=== PATIENT | male | born 1965 | race American Indian/Alaskan Native ===

== ENCOUNTER 2018-05-19 19:11 | Emergency (ER) | payer BC ==
[2018-05-19 19:54] VITALS: BP 145/93
[2018-05-20] MEDS ORDERED: BENADRYL PO ONE (00:48)
[2018-05-20] MEDS ORDERED: MOTRIN PO ONE (00:48)
--- NOTE | 2018-05-20 00:56 | Emergency Department Report ---
[facility] Chief Complaint: Eye Problems Stated Complaint: FOREIGN OBJECT BILATERAL EYES Time Seen by Provider: 05/20/18 00:48 Duration: 3 Days Side: Bilateral Severity: moderate Symptoms: Yes Eye Itching, Yes Eye Redness, Yes Eye Pain, Yes Purulent Drainage (am yellow ), No Mucous Drainage, No Blurred Vision (resolved after irrigation ) , No Preceding URI, No H/O Allergic Rhinitis, No Contact Lens Use, No Trauma, No Fever, No Headache ED Review of Systems ROS: Stated complaint: FOREIGN OBJECT BILATERAL EYES Other details as noted in HPI Constitutional: denies: chills, fever Eyes: eye pain, eye discharge ENT: denies: ear pain, throat pain Respiratory: denies: cough, shortness of breath, wheezing Cardiovascular: denies: chest pain, palpitations Endocrine: no symptoms reported Gastrointestinal: denies: abdominal pain, nausea, diarrhea Genitourinary: denies: urgency, dysuria Musculoskeletal: denies: back pain, joint swelling, arthralgia Skin: denies: rash, lesions Neurological: denies: headache, weakness, paresthesias Psychiatric: denies: anxiety, depression Hematological/Lymphatic: denies: easy bleeding, easy bruising ED Past Medical Hx - Past Medical History Hx Hypertension: Yes - Surgical History Past Surgical History?: No - Social History Smoking Status: Never Smoker Substance Use Type: None - Medications Home Medications: Home Medications Medication Instructions Recorded Confirmed Last Taken Type Amlodipine Besylate [Norvasc] 10 mg PO QDAY 09/22/15 09/22/15 09/22/15 History Losartan/Hydrochlorothiazide 1 tab PO QDAY 09/22/15 09/22/15 09/22/15 History [Hyzaar 100-25 TAB] Ibuprofen 800 mg PO TID PRN #30 tablet 05/20/18 Unknown Rx Ketotifen Fumarate [Zaditor] 1 drop OU BID 7 Days #5 ml 05/20/18 Unknown Rx Polymyxin B Sulf/Trimethoprim 1 drop OU Q4H 10 Days #10 ml 05/20/18 Unknown Rx [Polytrim Eye Drops] [facility] Exam - Exam General: Vital signs noted. No distress. Alert and acting appropriately. Eye Exam: Both Injection, Both EOMI, Neither Chemosis, Neither Abnormal Pupil, Neither Eye Foreign Body, Neither Lid Foreign Body, Neither Mucous Discharge, Neither Purulent Discharge, Neither Photophobia HEENT: No Nasal Congestion, No Pharyngeal Erythema Remainder of HEENT: Normal Lungs: Yes Clear Lung Sounds, Yes Good Air Exchange, No Wheezes, No Stridor, No Cough, No Nasal Flaring, No Retractions, No Use of Accessory Muscles ED Course Vital Signs 05/19/18 19:51 Temperature 99.1 F Pulse Rate 75 Respiratory 16 Rate Blood Pressure 145/93 O2 Sat by Pulse 96 Oximetry ED Medical Decision Making - Medical Decision Making Patient states exposures to hydraulic fluid to bilateral eyes 3 days agoas irrigated and washed station at work now with increasing burning redness bilateral eyes states a.m. mucous discharge initially blurred vision resolved after irrigation of eyes no photophobia fever no chills no foreign bodies environments were irrigated with normal saline fluid acuity is 20/30 bilaterally plan Polytrim Zaditor follow up with ophthalmology in 2 days pt verbalzieda greement and understanding of same, pt for discharge to home in stable condition at this time. Critical care attestation.: If time is entered above; I have spent that time in minutes in the direct care of this critically ill patient, excluding procedure time. ED Disposition Clinical Impression: Conjunctivitis Qualifiers: Conjunctivitis type: acute Acute conjunctivitis type: bacterial Laterality: bilateral Qualified Code(s): H10.33 - Unspecified acute conjunctivitis, bilateral Disposition: DC-01 TO HOME OR SELFCARE Is pt being admited?: No Does the pt Need Aspirin: No Condition: Good Instructions: Conjunctivitis (ED) Prescriptions: Ibuprofen 800 mg PO TID PRN #30 tablet PRN Reason: pain Ketotifen Fumarate [Zaditor] 1 drop OU BID 7 Days #5 ml Polymyxin B Sulf/Trimethoprim [Polytrim Eye Drops] 1 drop OU Q4H 10 Days #10 ml Referrals: LARRY PICHARDO MD [Staff Physician] - 3-5 Days Forms: Work/School Release Form(ED) Time of Disposition: 00:59
== END 2018-05-20 01:11 | disposition home or self-care (01) ==
LOC: ED 19:11
DX: H10.33 Unspecified acute conjunctivitis, bilateral (principal); I10 Essential (primary) hypertension
CPT/HCPCS: 99282

== ENCOUNTER 2018-12-10 16:46 | Emergency (ER) | payer BC ==
[2018-12-10 17:33] VITALS: BP 135/97
--- NOTE | 2018-12-10 17:34 | Emergency Department Report ---
Chief Complaint: Dental/Oral Stated Complaint: TOOTHACHE Time Seen by Provider: 12/10/18 17:30 - HPI History of Present Illness: pt states that he has right upper dental pain two days ago states he saw the dentist today and was dx with dental abscess he claims the dentist advised to receive abx from the ER, states that the dentist is going to pull the tooth no fever no N/V PMHx HTN no medications allergies MSE screening note: Focused history and physical exam performed. ED Disposition for MSE Condition: Stable
--- NOTE | 2018-12-10 20:42 | Emergency Department Report ---
ED ENT HPI - General Chief complaint: Dental/Oral Stated complaint: TOOTHACHE Time Seen by Provider: 12/10/18 17:30 Source: patient Mode of arrival: Ambulatory Limitations: No Limitations - History of Present Illness Initial comments: pt is a 53 yo male who presents to the ED for right upper dental pain that began two days ago. Pt reports he saw the dentist today and was dx with dental abscess. He claims the dentist advised to receive abx from the ER, states that the dentist is going to pull the tooth after the completion of abx. pt denies fever or N/V. PMHx HTN, no medications allergies - Related Data Home Medications Medication Instructions Recorded Confirmed Last Taken Amlodipine Besylate [Norvasc] 10 mg PO QDAY 09/22/15 09/22/15 09/22/15 Losartan/Hydrochlorothiazide 1 tab PO QDAY 09/22/15 09/22/15 09/22/15 [Hyzaar 100-25 TAB] Previous Rx's Medication Instructions Recorded Last Taken Type Ketotifen Fumarate [Zaditor] 1 drop OU BID 7 Days #5 ml 05/20/18 Unknown Rx Polymyxin B Sulf/Trimethoprim 1 drop OU Q4H 10 Days #10 ml 05/20/18 Unknown Rx [Polytrim Eye Drops] Acetaminophen/Codeine [Tylenol 1 tab PO Q6H PRN #12 tab 12/10/18 Unknown Rx /Codeine # 3 tab] Amoxicillin/K Clav Tab [Augmentin 1 tab PO BID 7 Days #14 tab 12/10/18 Unknown Rx 875 mg] Ibuprofen 800 mg PO TID PRN #20 tablet 12/10/18 Unknown Rx Allergies Allergy/AdvReac Type Severity Reaction Status Date / Time No Known Allergies Allergy Verified 09/22/15 20:17 ED Dental HPI - General Chief complaint: Dental/Oral Stated complaint: TOOTHACHE Time Seen by Provider: 12/10/18 17:30 Source: patient Mode of arrival: Ambulatory Limitations: No Limitations - Related Data Home Medications Medication Instructions Recorded Confirmed Last Taken Amlodipine Besylate [Norvasc] 10 mg PO QDAY 09/22/15 09/22/15 09/22/15 Losartan/Hydrochlorothiazide 1 tab PO QDAY 09/22/15 09/22/15 09/22/15 [Hyzaar 100-25 TAB] Previous Rx's Medication Instructions Recorded Last Taken Type Ketotifen Fumarate [Zaditor] 1 drop OU BID 7 Days #5 ml 05/20/18 Unknown Rx Polymyxin B Sulf/Trimethoprim 1 drop OU Q4H 10 Days #10 ml 05/20/18 Unknown Rx [Polytrim Eye Drops] Acetaminophen/Codeine [Tylenol 1 tab PO Q6H PRN #12 tab 12/10/18 Unknown Rx /Codeine # 3 tab] Amoxicillin/K Clav Tab [Augmentin 1 tab PO BID 7 Days #14 tab 12/10/18 Unknown Rx 875 mg] Ibuprofen 800 mg PO TID PRN #20 tablet 12/10/18 Unknown Rx Allergies Allergy/AdvReac Type Severity Reaction Status Date / Time No Known Allergies Allergy Verified 09/22/15 20:17 ED Review of Systems ROS: Stated complaint: TOOTHACHE Other details as noted in HPI Comment: All other systems reviewed and negative ED Past Medical Hx - Past Medical History Hx Hypertension: Yes - Surgical History Past Surgical History?: No - Social History Smoking Status: Current Some Day Smoker Substance Use Type: Alcohol, Marijuana - Medications Home Medications: Home Medications Medication Instructions Recorded Confirmed Last Taken Type Amlodipine Besylate [Norvasc] 10 mg PO QDAY 09/22/15 09/22/15 09/22/15 History Losartan/Hydrochlorothiazide 1 tab PO QDAY 09/22/15 09/22/15 09/22/15 History [Hyzaar 100-25 TAB] Ketotifen Fumarate [Zaditor] 1 drop OU BID 7 Days #5 ml 05/20/18 Unknown Rx Polymyxin B Sulf/Trimethoprim 1 drop OU Q4H 10 Days #10 ml 05/20/18 Unknown Rx [Polytrim Eye Drops] Acetaminophen/Codeine [Tylenol 1 tab PO Q6H PRN #12 tab 12/10/18 Unknown Rx /Codeine # 3 tab] Amoxicillin/K Clav Tab [Augmentin 1 tab PO BID 7 Days #14 tab 12/10/18 Unknown Rx 875 mg] Ibuprofen 800 mg PO TID PRN #20 tablet 12/10/18 Unknown Rx ED Physical Exam - General Limitations: No Limitations General appearance: alert, in no apparent distress - Head Head exam: Present: atraumatic, normocephalic - Eye Eye exam: Present: normal appearance - ENT ENT exam: Present: other (poor dentition throughout, small amount of swelling present to the right upper gum, tooth decay on the right upper tooth, multiple teeth extractions, uvula is midline, no obvious facial edema, no angioedema) - Neurological Exam Neurological exam: Present: alert, oriented X3 - Psychiatric Psychiatric exam: Present: normal affect, normal mood - Skin Skin exam: Present: warm, dry, intact ED Course Vital Signs 12/10/18 17:31 Temperature 98.0 F Pulse Rate 83 Respiratory 18 Rate Blood Pressure 135/97 O2 Sat by Pulse 100 Oximetry ED Medical Decision Making - Medical Decision Making pt is a 53 yo male who presents to the ED for right upper dental pain that began two days ago. Pt reports he saw the dentist today and was dx with dental absces s. He claims the dentist advised to receive abx from the ER, states that the dentist is going to pull the tooth after the completion of abx. pt denies fever or N/V. PMHx HTN, no medications allergies. VSS. pt given pain medication and abx. advised to take all medication as prescribed. Follow up with dentist DEMETRIUS. Follow up with PCP in the next 2-3 days. Return to the ED for any new or worsening symptoms. Critical care attestation.: If time is entered above; I have spent that time in minutes in the direct care of this critically ill patient, excluding procedure time. ED Disposition Clinical Impression: Dental caries, Dental infection Disposition: TO HOME OR SELFCARE Is pt being admited?: No Does the pt Need Aspirin: No Condition: Stable Instructions: Dental Caries (ED) Additional Instructions: Please take all medication as prescribed. Please see your dentist DEMETRIUS. Please see a primary care doctor in the next 2-3 days. Return to the emergency room for any new or worsening symptoms. Prescriptions: Amoxicillin/K Clav Tab [Augmentin 875 mg] 1 tab PO BID 7 Days #14 tab Ibuprofen 800 mg PO TID PRN #20 tablet PRN Reason: Pain, Moderate (4-6) Acetaminophen/Codeine [Tylenol /Codeine # 3 tab] 1 tab PO Q6H PRN #12 tab PRN Reason: Pain , Severe (7-10) Referrals: BENNY SIMENTAL MD [Primary Care Provider] - 2-3 Days your, dentist [Other] - [facility] Time of Disposition: 20:38 Print Language: WOLOF
== END 2018-12-10 20:50 | disposition home or self-care (01) ==
LOC: ED 16:46
DX: K08.89 Other specified disorders of teeth and supporting structures (principal); I10 Essential (primary) hypertension; F17.200 Nicotine dependence, unspecified, uncomplicated; F12.10 Cannabis abuse, uncomplicated
CPT/HCPCS: 99282